=== PATIENT | male | born 1965 | race Caucasian/White ===

== ENCOUNTER → 2016-04-16 | Outpatient (CLI) | payer BC ==
--- NOTE | 2016-04-16 23:28 | MR ---
EXAMINATION TYPE: MR knee LT wo con DATE OF EXAM: 04/16/2016 4:49 PM COMPARISON: NONE HISTORY: Knee pain TECHNIQUE: Multiplanar, multisequence imaging of the left knee is performed without IV contrast. FINDINGS: The anterior and posterior cruciate ligaments are intact. There is a small knee joint effusion. There is metal artifact at the medial femoral condyle. There is on the T2 images increased signal in both sides of the medial joint space with medial joint space narrowing. There is thickening and increased signal in the posterior horn of the medial meniscus extending horizontally. The collateral ligaments are intact. There are small osteochondral defects involving the medial aspect of the articular surfac e of the medial femoral condyle. IMPRESSION: There is moderate osteoarthritis in the medial joint space with spurring of the medial femoral condyl es and joint space narrowing. There is degenerative thinning of the medial meniscus with a large hori zontal tear of the posterior horn of the medial meniscus. Significant metal artifact obscures the ant erior medial femoral condyle. There is mild edema on both sides of the medial joint space. No fracture line seen. Small knee joint effusion.
== END | disposition home or self-care (01) ==
LOC: RADMRIMAIN 15:45
PROVIDERS: ATTEND Family Medicine
DX: S83.242A Other tear of medial meniscus, current injury, left knee, initial encounter (principal); M17.12 Unilateral primary osteoarthritis, left knee

== ENCOUNTER → 2016-05-05 | Outpatient (CLI) | payer BC ==
[2016-05-05 17:08] LABS: EKG EKG PERFORMED
[2016-05-05 17:44] LABS: Basophils # (A) 0.1 k/uL (0-0.2); Basophils % (A) 1 %; CH 32.9; CHCM 33.5; Eosinophils # (A) 0.5 k/uL (0-0.7); Eosinophils % (A) 7 %; HCT 42.8 % (39.0-53.0); HDW 2.29; HGB 13.9 gm/dL (13.0-17.5); Luc # (Auto) 0.16; Luc % (Auto) 2; Lymphocytes # (A) 2.5 k/uL (1.0-4.8); Lymphocytes % (A) 33 %; MCH 32.1 pg (25.0-35.0); MCHC 32.4 g/dL (31.0-37.0); MCV 98.8 fL (80.0-100.0); Mean Platelet Volume 7.2; Monocytes # (A) 0.5 k/uL (0-1.0); Monocytes % (A) 7 %; Neutrophils # (A) 3.8 k/uL (1.3-7.7); Neutrophils % (A) 50 %; RBC 4.33 m/uL (4.30-5.90); RDW 12.3 % (11.5-15.5); WBC 7.6 k/uL (3.8-10.6); WBC (Perox) 8.13
[2016-05-05 17:55] LABS: Anion Gap 13 mmol/L; Carbon Dioxide 25 mmol/L (22-30); Chloride 106 mmol/L (98-107); Potassium 4.5 mmol/L (3.5-5.1); Sodium 144 mmol/L (137-145)
== END | disposition home or self-care (01) ==
LOC: LABPAT 16:31
PROVIDERS: ATTEND Orthopaedic Surgery
DX: Z01.810 Encounter for preprocedural cardiovascular examination (principal); Z01.812 Encounter for preprocedural laboratory examination; M23.92 Unspecified internal derangement of left knee
CPT/HCPCS: 80051; 85025; 93005

== ENCOUNTER 2016-05-12 12:48 | Day surgery (SDC) | payer BC ==
[2016-05-07 09:58] VITALS: BMI 27.8
--- NOTE | 2016-05-11 15:24 | HP ---
DATE OF ADMISSION: CHIEF COMPLAINT: Left knee pain. HISTORY OF PRESENT ILLNESS: The patient is a 50-year-old [place] [employer] who presents with left knee pain after injury 01/04/2016. He stepped in the low spot while weed whacking in his back yard hyperextended his knee. He has had medial pain and giving way ever since. He has tried medications with only partial temporary relief. He notes it significantly limits him. PAST MEDICAL HISTORY: Negative. PAST SURGICAL HISTORY: Negative. CURRENT MEDICATIONS: Aleve. He denies drug allergies. FAMILY HISTORY: Significant for heart disease and cancer. SOCIAL HISTORY: Significant for previous tobacco use however he quit in January 2016. A sixteen-point review of systems otherwise reviewed and is noncontributory. On examination, the patient is approximately 6 feet tall, 210 pounds of mesomorphic habitus. HEENT exam is nonfocal. Neck is supple. He has painless passive motion of his left hip. Straight leg raise is negative. Active motion left knee, -6 to 135 degrees of flexion. He has a moderate effusion. He is tender about the medial joint line. Collaterals are stable, Chris's negative, Mercedes's elicits medial pain. His distal neurovascular exam appears to be intact in the left lower extremity. Weight-bearing notch, lateral, and merchant views of the left knee obtained in the office show moderate medial compartment narrowing. MRI report from 04/16/2016 left knee shows a posterior medial meniscal tear along with medial compartment osteoarthrosis. IMPRESSION: 1. Left knee internal derangement with symptomatic medial meniscal tear. 2. Left knee moderate medial compartment osteoarthrosis. RECOMMENDATIONS: I talked to the patient at length regarding his treatment options. At this point he is having pain and mechanical symptoms that limit him. After thorough discussion, he opts to proceed with surgery. We will plan to proceed with arthroscopic evaluation with probable partial medial meniscectomy. Risks and benefits are discussed at length in layman terms. We will likely perform that as an outpatient procedure.
[~2016-05-12 12:48] MED LIST: DEXAMETHASONE SOD PHOSPHATE 10 MG/ML 1 ML VIAL IV ONE; LACTATED RINGERS 1,000 ML IV SCH; MIDAZOLAM 2 MG/2 ML VIAL IV PRN; ONDANSETRON 4 MG/2 ML VIAL IVP ONE; SCOPOLAMINE 1.5MG/72HR PATCH TRANSDERM ONE; ceFAZolin 2 GM in SODIUM CHLORIDE 0.9% 100 ML IVPB ONE
[2016-05-12] MEDS ORDERED: LIDOCAINE 1% 20 ML VIAL (10MG/ML) FOR IV START INTRADERMA ONE (13:35)
[2016-05-12] MEDS ORDERED: LIDOCAINE 1% INJ 10MG/ML (20 ML MDV) ONE (15:36)
[2016-05-12] MEDS ORDERED: fentaNYL (PF) 50 MCG/ML 2 ML AMP ONE (15:36)
[2016-05-12] MEDS ORDERED: PROPOFOL 10 MG/ML 20 ML VIAL IV ONE (15:36)
[2016-05-12] MEDS ORDERED: MIDAZOLAM 2 MG/2 ML VIAL ONE (15:36)
[2016-05-12] MEDS ORDERED: HYDROmorphone (PF) 1 MG/ML ONE (15:36)
--- NOTE | 2016-05-12 16:15 | P.OP ---
Date of Procedure: 05/12/16 Preoperative Diagnosis: Left knee internal derangement Postoperative Diagnosis: Left knee posterior medial meniscal tear/grade 3 chondral injury distal medial femoral condyle/reactive synovitis of the medial and patellofemoral compartments Procedure(s) Performed: Left knee arthroscopic partial medial meniscectomy/medial femoral chondrectomy/ partial synovectomy of the medial and patellofemoral compartments Anesthesia: GETA Surgeon: Milad Ribeiro Estimated Blood Loss (ml): 5 Pathology: none sent Condition: stable Disposition: PACU Indications for Procedure: The patient is a 50-year-old male presents with progressive left knee pain and mechanical symptoms despite conservative measures. A discussion of the risks and benefits of operative intervention versus continued conservative measures was made with patient. He opted to proceed with surgery. Operative risks to include infection, neurovascular injury, development of blood clots, possible incomplete resolution of symptoms, possible worsening symptoms and need for subsequent procedures was discussed. Informed consent was obtained. Operative Findings: As below Description of Procedure: The patient was brought to the operating room, and after induction of general anesthesia I examined the left knee. Collaterals were stable, Chris was negative, and posterior drawer was negative. The left lower extremity was prepped and draped in a normal fashion. A superior lateral portal was made through 3 mm skin incision superior and lateral to the patella. This was used for outflow. A lateral portal was made through a 5 mm vertical skin incision lateral to the patellar tendon above the joint line. Diagnostic arthroscopy was performed. A medial portal was made through a similar incision medial to the patellar tendon above the joint line. On inspection of the medial compartment, he is noted to have a grade 3/4 chondral injury involving the distal medial portion of the medial femoral condyle. There was a loose chondral flap. This was debrided back to stable base with a motorized shaver. A corresponding grade 3/4 chondral defect was noted along the medial aspect the medial tibial plateau. A posterior medial meniscal tear was noted in the white- red junction. This was not amenable to repair. This was debrided back to a stable base with straight baskets and a motorized shaver. The edges were contoured. Reactive synovitis involving the anterior medial compartment was debrided with motorized shaver. On inspection the notch, the anterior cruciate ligament appeared be intact. On inspection lateral compartment, no significant cartilage or meniscal pathology was noted. On inspection patellofemoral articulation, there was reactive synovitis that was debrided with a motorized shaver. Minimal degenerative changes were noted. The gutters were clear debris. The knee was then thoroughly irrigated. The portals were closed with Steri-Strips. A sterile dressing was applied in addition to a compression stocking. The patient was awoken from general anesthesia and transferred to recovery room in good condition. Blood loss was estimated at 5 mL. No complications were incurred.
[2016-05-12 16:18] VITALS: TEMP 97.6
[2016-05-12] MEDS: HYDROmorphone 1 MG/ML 1 ML SYRINGE IVP PRN ×2 (16:35→16:43)
[2016-05-12 16:49] VITALS: RESP 16
[2016-05-12] MEDS ORDERED: SODIUM CHLORIDE 0.9% 1,000 ML IV ONE (16:57)
[2016-05-12 18:48] VITALS: BP 125/70; PULSE 77
== END 2016-05-12 18:20 | disposition home or self-care (01) ==
LOC: OR 12:48
PROVIDERS: ATTEND Orthopaedic Surgery
DX: S83.242A Other tear of medial meniscus, current injury, left knee, initial encounter (principal); M17.12 Unilateral primary osteoarthritis, left knee; M65.9 Synovitis and tenosynovitis, unspecified; M23.92 Unspecified internal derangement of left knee; K21.9 Gastro-esophageal reflux disease without esophagitis; X58.XXXA Exposure to other specified factors, initial encounter; Z79.1 Long term (current) use of non-steroidal anti-inflammatories (NSAID); Z87.891 Personal history of nicotine dependence
CPT/HCPCS: 29881; J2250; J1100; J0690; J2405; J2001; J3010; J1170; J2704